=== PATIENT | female | born 1970 | race Caucasian/White ===

== ENCOUNTER → 2017-11-30 10:34 | Outpatient (CLI) | payer OTHER, SELFPAY ==
--- NOTE | 2017-11-30 | DI.US.S_ITS ---
PROCEDURE: US THYROID INDICATIONS: THYROID NODULE TECHNIQUE: Real-time scanning was performed of the thyroid gland, with image documentation. COMPARISON: [facility], US, THYROID, 10/04/2015, 16:16. FINDINGS: Right: Thyroidectomy. Left: Thyroid lobe measures 5.2 x 2.0 x 2.0 cm, and is homogenous in echotexture. Nodule number: 1 Location: Left mid Size: Similar in size measuring 1.7 x 0.6 x 1.2 cm Composition: Solid Echogenicity: Hypoechoic Shape: wider than tall. Margins: Smooth Echogenic foci: None Total points: 4 ACR TI-RADS category: Moderately suspicious Nodule number: 2 Location: Left mid inferior Size: Similar in size measuring 0.6 x 0.4 x 0.5 cm Composition: Solid Echogenicity: Hypoechoic Shape: wider than tall. Margins: Smooth Echogenic foci: None Total points: 4 ACR TI-RADS category: Moderately suspicious Nodule number: 3 Location: Left mid to superior Size: 0.7 x 0.3 x 0.6 cm. Composition: Predominantly solid Echogenicity: Hypoechoic Shape: wider than tall. Margins: Move Echogenic foci: None Total points: 4 ACR TI-RADS category: Moderately suspicious IMPRESSION: Left thyroid nodules as above. Recommend continued sonographic surveillance as below. ACR TI-RADS definitions and recommendations: TI-RADS 1 (benign): 0 points. FNA not needed. TI-RADS 2 (not suspicious): 2 points. FNA not needed. TI-RADS 3 (mildly suspicious): 3 points. * FNA if 2.5 cm or larger, follow up if 1.5 cm or larger (at 1, 3, and 5 years). TI-RADS 4 (moderately suspicious): 4-6 points. * FNA if 1.5 cm or larger, follow up if 1 cm or larger (at 1, 2, 3, and 5 years). TI-RADS 5 (highly suspicious): 7 points or more. * FNA if 1 cm or larger, follow up if 0.5 cm or larger (every year for 5 years). Dictated by: Jermaine FOOTE Interpreted: Aayush Coronel MD on 11/30/2017 at 13:12 Approved by: Rob Coronel M.D. on 11/30/2017 at 16:37
== END ==
PROVIDERS: PCP Family Medicine; Visit Provider Family Medicine
DX: E04.2 Nontoxic multinodular goiter (principal)
CPT/HCPCS: 76536

== ENCOUNTER → 2017-12-20 11:20 | Outpatient (CLI) | payer OTHER, SELFPAY ==
--- NOTE | 2017-12-20 | DI.MG.S_ITS ---
BILATERAL DIGITAL SCREENING MAMMOGRAM 3D/2D WITH CAD: 12/20/2017 CLINICAL: Routine screening. Family history of breast cancer. Comparison is made to exams dated: 11/03/2016 mammogram, 09/15/2015 mammogram, and 05/15/2014 mammogram - [facility]. The tissue of both breasts is extremely dense, which lowers the sensitivity of mammography. Current study was also evaluated with a Computer Aided Detection (CAD) system. No significant masses, calcifications, or other findings are seen in either breast. There has been no significant interval change. IMPRESSION: NEGATIVE There is no mammographic evidence of malignancy. A 1 year screening mammogram is recommended. This exam was interpreted at Station ID: [id number]. NOTE: For mammograms, a report in lay terms will be sent to the patient. Approximately 15% of breast malignancies will not be visualized mammographically. In the management of a palpable breast mass, a negative mammogram must not discourage biopsy of a clinically suspicious lesion. Electronically Signed By: Rafa villalobos/doyle:12/20/2017 16:45:38 copy to: Marcos Hernandez letter sent: Normal Exam ACR BI-RADS Category 1: Negative 3341F
== END ==
PROVIDERS: PCP Family Medicine; Visit Provider Family Medicine
DX: Z12.31 Encounter for screening mammogram for malignant neoplasm of breast (principal); Z80.3 Family history of malignant neoplasm of breast
CPT/HCPCS: 77063; 77067

== ENCOUNTER → 2018-01-01 09:33 | Outpatient (CLI) | payer OTHER, SELFPAY ==
--- NOTE | 2018-01-01 | DI.US.S_ITS ---
PROCEDURE: US FINE NEEDLE ASPIRATION INDICATIONS: THYROID NODULE TECHNIQUE: The indications, alternatives, benefits, risks, and complications of the procedure were explained to the patient. Written informed consent was obtained and placed in the chart. The thyroid region was examined sonographically and a site was chosen for ultrasound guided percutaneous sampling. The skin was prepared and draped in the usual fashion, and anesthetized with 1% lidocaine infiltrated from the skin down to the thyroid gland. Multiple passes were then performed, with contents emptied into an appropriate pathology specimen container. A bandage was applied to the area of access at completion of the study. COMPARISON: [facility], US, US THYROID, 11/30/2017, 10:47. FINDINGS: Location(s) of lesion(s) sampled: Right lobe medial thyroid nodule [place]: 25 gauge hypodermic needles x 5 22 gauge hypodermic needles x 1. Number of passes: 6 Medications: 1% lidocaine for local anaesthesia. Complications: None. IMPRESSION: Successful ultrasound-guided thyroid nodule fine needle aspiration, with cytology results pending. Please see chart below for management recommendations based on cytology results. [place] [facility] ReportingRecommendationsNon-diagnostic* Repeat US-guided FNA, with on-site cytology evaluation if possible. * Repeated non-diagnostic nodules without high suspicion US features: close observation vs surgical consult. * Consider surgery if nodule has high suspicion US features, grows >20% in 2 dimensions on followup, or patient has clinical risk factors for malignancy. Benign* If nodule has high suspicion US features: repeat US and FNA within 12 months. * If nodule has low to intermediate suspicion US features: repeat US at 12-24 months. If nodule grows (20% increase in at least 2 dimensions, with minimal increase of 2 mm or >50% change in volume), or development of new suspicious US features, then repeat FNA or continue followup. * If nodule has very low suspicion US features: followup US at >24 months. Atypia of undetermined significance, follicular lesion of undetermined significanceRepeat FNA, molecular testing, followup US, or surgical consult.Follicular neoplasm, suspicious for follicular neoplasmSurgical consult; also consider molecular testing. Suspicious for malignancySurgical consult.MalignantSurgical consult. Dictated by: Shamika Pritchett M.D. on 01/01/2018 at 11:27 Approved by: Shamika Pritchett M.D. on 01/01/2018 at 11:29
--- NOTE | 2018-01-01 | PATH_ITS ---
Note [facility] Accession Number: [id number] TESTS RESULT FLAG UNITS REF RANGE LAB Clinician Provided Cytology Information No. of containers..01 ThinPrep Vial No. of containers..10 Previously Prepared Cytology Slide 01 L THYROID NODULE DIAGNOSIS: 02 LEFT THYROID NODULE NEGATIVE FOR MALIGNANT CELLS. [place] CATEGORY II. SPECIMEN CONSISTS OF BENIGN FOLLICULAR CELLS, HEMOSIDERIN-LADEN MACROPHAGES, COLLOID, AND BLOOD. THIS PATTERN IS CONSISTENT WITH A BENIGN FOLLICULAR NODULE. Pathologist ICD10: 02 E04.1 01 47 years old female comes in today for thyroid nodule 02 Melissa Hampton MD, Pathologist NPI- [id number] 01 Baljit Connelly, Custom Ski Maker ([facility]) 01 30 CC, COLORLESS, CLEAR Also, received 5 alcohol fixed and 5 quick stained slides. /HKH FLAG LEGEND: L-Low Normal,H-High Normal,LL-Alert Low,HH-Alert High <-Panic Low,>-Panic High,A-Abnormal,AA-Critical Abnormal Performed at: 01 =Z [facility] [address], [place] [address] Horacio Wells MD, 02 [facility] [place] [address] [place] [id number] Sacha Mario MD, Performed at: 01 [facility] [address], [place], [place] [id number] MD Horacio Wells MD Phone: [phone]
== END ==
PROVIDERS: PCP Family Medicine; Visit Provider Family Medicine
DX: E04.1 Nontoxic single thyroid nodule (principal)
CPT/HCPCS: 10022; 76942

== ENCOUNTER → 2018-04-02 16:33 | Outpatient (CLI) | payer OTHER, SELFPAY ==
--- NOTE | 2018-04-02 16:34 | DI.MRI.S_ITS ---
PROCEDURE: MR CERVICAL SPINE WO CON INDICATIONS: NUMBNESS AND TINGLING OF THE RIGHT HAND. NECK PAIN TECHNIQUE: Noncontrast sagittal T1 spin echo and T2 fast spin echo, sagittal STIR, foraminal oblique sagittal T2 fast spin echo, and axial gradient echo or T2 fast spin echo through the cervical spine. COMPARISON: [facility], MR, C-SPINE WITHOUT CONTRAST, 10/03/2016, 7:10. FINDINGS: Image quality: Excellent. Alignment and Curvature: There is normal bony alignment. Bone Marrow: Marrow demonstrates normal overall signal. Spinal Cord: Visualized spinal cord has normal size and signal. No cerebellar tonsillar herniation. Paraspinous Soft Tissues: No paravertebral masses. Prevertebral soft tissues are normal in thickness. C2-C3: Mild disc desiccation and diffuse disc bulge. Mild facet hypertrophy bilaterally. Mild canal stenosis. Mild left foraminal stenosis. No right foraminal stenosis. No change. C3-C4: Mild disco loss and desiccation. Severe left and mild right facet hypertrophy. Moderate canal stenosis. Minimal left hemicord flattening. Severe left foraminal stenosis. Mild right foraminal stenosis. No change. C4-C5: Moderate disc desiccation. Mild disc height loss. Moderate diffuse disc bulge. Small central protrusion. Left greater than right facet and uncovertebral hypertrophy. Moderate canal stenosis. Increased, moderate left foraminal stenosis. No change in mild right foraminal stenosis. C5-C6: Mild disc height loss and desiccation. Mild diffuse disc bulge. Mild facet and uncovertebral hypertrophy. Mild canal stenosis. Mild bilateral foraminal stenosis. No change. C6-C7: Mild disc height loss and desiccation. Mild diffuse disc bulge with superimposed small central protrusion. Mild facet and uncovertebral hypertrophy bilaterally. Mild canal stenosis. Mild bilateral foraminal stenosis. No change. C7-T1: Mild disc desiccation and diffuse disc bulge. Mild facet and uncovertebral hypertrophy. Mild canal stenosis. Mild bilateral foraminal stenosis. No change. IMPRESSION: 1. Multilevel degenerative disc and facet disease, as well as uncovertebral hypertrophy. 2. Multilevel canal stenoses, worst at C3-C4, where there is moderate canal stenosis with minimal left cord flattening, as before. 3. No change in severe left-sided C3-C4 foraminal stenosis. 4. Increased, moderate left-sided C4-C5 foraminal stenosis. Dictated by: Emma Almonte M.D. on 04/03/2018 at 9:25 Approved by: Emma Almonte M.D. on 04/03/2018 at 9:30
== END ==
PROVIDERS: PCP Family Medicine; Visit Provider Family Medicine
DX: M50.31 Other cervical disc degeneration, high cervical region (principal); M48.02 Spinal stenosis, cervical region; R20.0 Anesthesia of skin
CPT/HCPCS: 72141

== ENCOUNTER → 2018-07-10 10:13 | Outpatient (CLI) | payer OTHER, SELFPAY ==
--- NOTE | 2018-07-10 | DI.RAD.S_ITS ---
PROCEDURE: XR CHEST 2V INDICATIONS: RIGHT UPPER CHEST PAIN TECHNIQUE: 2 views of the chest were acquired. COMPARISON: [facility], CHEST 2 VIEW, 02/18/2016, 7:56. [facility], CHEST 2 VIEW, 07/14/2009, 14:32. FINDINGS: Surgical changes and devices: None. Lungs and pleura: No pleural effusions or pneumothorax. Lungs are clear. Mediastinum: Mediastinal contours are normal. Heart size is normal. Bones and chest wall: No suspicious bony abnormalities. Soft tissues appear unremarkable. IMPRESSION: Normal for age, source of current right upper chest pain symptoms is not seen. Dictated by: Jason Guerrero M.D. on 07/10/2018 at 10:39 Approved by: Jason Guerrero M.D. on 07/10/2018 at 10:40
== END ==
PROVIDERS: PCP Family Medicine; Visit Provider Family Medicine
DX: R07.89 Other chest pain (principal)
CPT/HCPCS: 71046

== ENCOUNTER → 2018-09-16 11:13 | Outpatient (CLI) | payer OTHER, SELFPAY ==
--- NOTE | 2018-09-16 | DI.RAD.S_ITS ---
PROCEDURE: XR CHEST 2V INDICATIONS: Thoracic outlet syndrome TECHNIQUE: 2 views of the chest were acquired. COMPARISON: [facility], CR, XR CHEST 2V, 07/10/2018, 10:19. FINDINGS: Surgical changes and devices: None. Lungs and pleura: Lungs are clear. No pleural effusions or pneumothorax. Mediastinum: Mediastinal contours are normal. Heart size is normal. Bones and chest wall: No suspicious bony abnormalities. Soft tissues appear unremarkable. IMPRESSION: No acute disease. Dictated by: Phillip Luz M.D. on 09/16/2018 at 12:31 Approved by: Phillip Luz M.D. on 09/16/2018 at 12:32
--- NOTE | 2018-09-16 | DI.RAD.S_ITS ---
PROCEDURE: XR CERVICAL SPINE 2V OR 3V INDICATIONS: THORACIC OUTLET SYNDROME TECHNIQUE: 3 view(s) of the cervical spine were acquired. COMPARISON: [facility], CR, XR CHEST 2V, 09/16/2018, 11:45. FINDINGS: Bones: No fractures or dislocations to the C7 level. The lateral masses of C1 appear intact on the odontoid view. No suspicious bony lesions. Diffuse facet arthropathy. Cervical disc space heights appear grossly preserved. No definite cervical rib is seen. Soft tissues: No prevertebral soft tissue swelling. IMPRESSION: Multilevel bilateral facet arthropathy Dictated by: Phillip Luz M.D. on 09/16/2018 at 12:56 Approved by: Phillip Luz M.D. on 09/16/2018 at 13:02
== END ==
PROVIDERS: PCP Family Medicine; Visit Provider Orthopaedic Surgery
DX: G54.0 Brachial plexus disorders (principal)
CPT/HCPCS: 71046; 72040

== ENCOUNTER → 2019-01-08 16:17 | Outpatient (CLI) | payer BC, OTHER, SELFPAY ==
--- NOTE | 2019-01-08 16:21 | DI.RAD.S_ITS ---
PROCEDURE: XR CHEST 2V INDICATIONS: COUGH TECHNIQUE: 2 views of the chest were acquired. COMPARISON: [facility], CT, ABDOMEN/PELVIS WITH CONTRAST, 03/02/2016, 6:47. [facility], CR, XR CHEST 2V, 09/16/2018, 11:45. FINDINGS: Surgical changes and devices: Cholecystectomy clips. Lungs and pleura: Lungs are clear. No consolidation. No pleural effusions or pneumothorax. Mediastinum: Mediastinal contours are normal and unchanged. Heart size is normal. Bones and chest wall: No suspicious bony abnormalities. Soft tissues appear unremarkable. IMPRESSION: No acute cardiopulmonary abnormality. Dictated by: Myles Barbosa M.D. on 01/08/2019 at 16:53 Approved by: Myles Barbosa M.D. on 01/08/2019 at 16:55
== END ==
PROVIDERS: PCP Family Medicine; Visit Provider Family Medicine
DX: R05 Cough (principal)
CPT/HCPCS: 71046

== ENCOUNTER → 2019-02-14 07:46 | Outpatient (CLI) | payer BC, OTHER, SELFPAY ==
--- NOTE | 2019-02-14 | DI.US.S_ITS ---
PROCEDURE: US THYROID INDICATIONS: Nontoxic single thyroid nodule TECHNIQUE: Real-time scanning was performed of the thyroid gland, with image documentation. COMPARISON: [facility], US, US THYROID, 11/30/2017, 10:47. [facility], US, THYROID, 10/04/2015, 16:16. FINDINGS: Right: Surgically resected. Left: Thyroid lobe measures 5.2 x 2.2 x 1.9 cm, and is homogenous in echotexture. Isthmus: 4.0 mm thick. Nodule number: 1 Location: Left mid Size: Not significantly changed at 1.6 x 0.6 x 1.2 cm. Composition: Predominantly solid Echogenicity: Hypoechoic Shape: wider than tall. Margins: Smooth Echogenic foci: Macrocalcification Total points: 5 ACR TI-RADS category: Moderately suspicious Nodule number: 2 Location: Left inferior Size: Unchanged at 0.6 x 0.5 x 0.4 cm. Composition: Solid Echogenicity: Hypoechoic Shape: wider than tall. Margins: Smooth Echogenic foci: None Total points: 4 ACR TI-RADS category: Moderately suspicious Nodule number: 3 Location: Left superior Size: Unchanged at 0.7 x 0.6 x 0.4 cm. Composition: Solid Echogenicity: Hypoechoic Shape: wider than tall. Margins: Smooth Echogenic foci: None Total points: 4 ACR TI-RADS category: Moderately suspicious IMPRESSION: Stable appearance of left thyroid nodules. ACR TI-RADS definitions and recommendations: TI-RADS 1 (benign): 0 points. FNA not needed. TI-RADS 2 (not suspicious): 2 points. FNA not needed. TI-RADS 3 (mildly suspicious): 3 points. * FNA if 2.5 cm or larger, follow up if 1.5 cm or larger (at 1, 3, and 5 years). TI-RADS 4 (moderately suspicious): 4-6 points. * FNA if 1.5 cm or larger, follow up if 1 cm or larger (at 1, 2, 3, and 5 years). TI-RADS 5 (highly suspicious): 7 points or more. * FNA if 1 cm or larger, follow up if 0.5 cm or larger (every year for 5 years). Dictated by: Jermaine FOOTE Interpreted: Monica Yoder MD on 02/14/2019 at 9:35 Approved by: Monica Yoder M.D. on 02/14/2019 at 15:12
== END ==
PROVIDERS: PCP Family Medicine; Visit Provider Family Medicine
DX: E04.2 Nontoxic multinodular goiter (principal)
CPT/HCPCS: 76536

== ENCOUNTER → 2019-05-14 07:15 | Outpatient (CLI) | payer BC, OTHER, SELFPAY ==
--- NOTE | 2019-05-14 | DI.MG.S_ITS ---
BILATERAL DIGITAL SCREENING MAMMOGRAM 3D/2D WITH CAD: 05/14/2019 CLINICAL: Routine screening. Family history of breast cancer. Comparison is made to exams dated: 12/20/2017 mammogram, 11/03/2016 mammogram, and 09/15/2015 mammogram - [facility]. The tissue of both breasts is extremely dense, which lowers the sensitivity of mammography. Current study was also evaluated with a Computer Aided Detection (CAD) system. No significant masses, calcifications, or other findings are seen in either breast. There has been no significant interval change. IMPRESSION: NEGATIVE There is no mammographic evidence of malignancy. A 1 year screening mammogram is recommended. This exam was interpreted at Station ID: [id number]. NOTE: For mammograms, a report in lay terms will be sent to the patient. Approximately 15% of breast malignancies will not be visualized mammographically. In the management of a palpable breast mass, a negative mammogram must not discourage biopsy of a clinically suspicious lesion. Electronically Signed By: Enrique alonzo/doyle:05/14/2019 08:01:45 copy to: Marcos Hernandez letter sent: Normal Exam ACR BI-RADS Category 1: Negative 3341F
== END ==
PROVIDERS: PCP Family Medicine; Visit Provider Family Medicine
DX: Z12.31 Encounter for screening mammogram for malignant neoplasm of breast (principal); Z80.3 Family history of malignant neoplasm of breast
CPT/HCPCS: 77063; 77067

== ENCOUNTER → 2020-05-22 09:54 | Outpatient (CLI) | payer OTHER, SELFPAY ==
--- NOTE | 2020-05-22 | DI.MG.S_ITS ---
BILATERAL DIGITAL SCREENING MAMMOGRAM 3D/2D WITH CAD: 05/22/2020 CLINICAL: Routine screening. Family history of breast cancer. Comparison is made to exams dated: 05/14/2019 mammogram, 12/20/2017 mammogram, and 11/03/2016 mammogram - [facility]. The tissue of both breasts is extremely dense, which lowers the sensitivity of mammography. Current study was also evaluated with a Computer Aided Detection (CAD) system. No significant masses, calcifications, or other findings are seen in either breast. There has been no significant interval change. IMPRESSION: NEGATIVE There is no mammographic evidence of malignancy. A 1 year screening mammogram is recommended. This exam was interpreted at Station ID: [id number]. NOTE: For mammograms, a report in lay terms will be sent to the patient. Approximately 15% of breast malignancies will not be visualized mammographically. In the management of a palpable breast mass, a negative mammogram must not discourage biopsy of a clinically suspicious lesion. Electronically Signed By: Michoacano Manning acr/doyle:05/23/2020 18:18:24 copy to: Elisa Rodriguez letter sent: Normal Exam ACR BI-RADS Category 1: Negative 3341F
== END ==
PROVIDERS: PCP Family Medicine; Referring Provider Family Medicine; Visit Provider Family Medicine
DX: Z12.31 Encounter for screening mammogram for malignant neoplasm of breast (principal); Z80.3 Family history of malignant neoplasm of breast
CPT/HCPCS: 77063; 77067

== ENCOUNTER → 2020-06-25 14:05 | Outpatient (CLI) | payer OTHER, SELFPAY ==
[2020-06-25 15:14] LABS: Add Manual Diff / Slide Review NO; Basophils Absolute Auto 0 /uL (0-100); Basophils Percent Auto 0.4 % (0-2); Eosinophils Absolute Auto 200 /uL (0-450); Eosinophils Percent Auto 2.1 % (2-4); Hematocrit 37.9 % (36-46); Hemoglobin 12.7 g/dL (12.0-16.0); Lymphocytes Absolute Auto 3300 /uL (1100-4500); Lymphocytes Percent Auto 41.1 % (25-40); Mean Corpuscular HGB Conc 33.3 % (30-36); Mean Corpuscular Hemoglobin 28.6 PG (26-34); Mean Corpuscular Volume 85.9 fL (80-100); Monocytes Absolute Auto 600 /uL (0-900); Neutrophils Absolute Auto 4000 /uL (1500-7000); Neutrophils Percent Auto 49.4 % (50-75); Platelet Count 257 X10^3/uL (150-400); Red Blood Cell Count 4.42 X10^6/uL (4.0-5.2); Red Cell Distribution Width 14.4 % (11.6-14.8); White Blood Cell Count 8.1 X10^3/uL (4.5-11.0)
[2020-06-25 15:53] LABS: HEMOLYSIS < 15 (0-50); Iron 70 ug/dL (37-170)
[2020-06-25 16:04] LABS: Percent Iron Saturation 21 % (15-50); Total Iron Binding Capacity 336 ug/dL (265-497); Transferrin 268 mg/dL (206-381)
[2020-06-25 16:11] LABS: Free T4, Direct Thyroxine 1.06 ng/dL (0.78-2.19)
[2020-06-25 16:25] LABS: Thyroid Stimulating Hormone 1.25 uIU/mL (0.47-4.68)
[2020-06-29 06:26] LABS: Percent Free Testosterone 2.37 % (0.50-2.80); Testosterone Free 0.46 ng/dL (0.10-0.85); Testosterone Total 19.3 ng/dL (.)
== END ==
PROVIDERS: PCP Family Medicine; Referring Provider Obstetrics & Gynecology; Visit Provider Obstetrics & Gynecology
DX: L65.9 Nonscarring hair loss, unspecified (principal)
CPT/HCPCS: 36415; 83540; 83550; 84402; 84403; 84439; 84443; 85025

== ENCOUNTER → 2020-06-30 14:05 | Outpatient (CLI) | payer OTHER, SELFPAY ==
[2020-06-30 16:32] LABS: Estradiol, Total 168.2 pg/mL
== END ==
PROVIDERS: PCP Family Medicine; Referring Provider Obstetrics & Gynecology; Visit Provider Obstetrics & Gynecology
DX: L65.9 Nonscarring hair loss, unspecified (principal)
CPT/HCPCS: 36415; 82670

== ENCOUNTER → 2020-08-25 07:38 | Outpatient (CLI) | payer OTHER, SELFPAY ==
[2020-08-25] MEDS: COVID-19 VACC, Ad26(JANSSEN)/PF 0.5 ML IM (07:54)
== END ==
PROVIDERS: PCP Family Medicine; Visit Provider Internal Medicine
DX: Z23 Encounter for immunization (principal)
CPT/HCPCS: 0031A; 91303

== ENCOUNTER → 2021-02-07 09:55 | Outpatient (CLI) | payer OTHER, SELFPAY ==
--- NOTE | 2021-03-04 08:20 | P.HOLT.S_ITS ---
Crop Nutrition Scientist Report Referral & Results Date Patient Seen: 02/07/21 Requesting provider: Marcos Hernandez Indication: Palpitations Duration of monitoring (days): 14 Diary information: There were 8 patient triggered events and 4 patient diary entries All of these patient events were associated with sinus rhythm only Data: Minimum heart rate identified was 40 beats per minute at 05:16 on 02/10/2021 Maximum sinus heart rate was 132 beats per minute at 15:17 on 02/15/2021 Maximum overall heart rate was 162 beats per minute at 08:02 on 02/17/2021 during a run of SVT/atrial tachycardia Less than 1% of identified beats were ventricular or supraventricular ectopic in origin, which would classify them as rare. There were 8 runs of SVT/atrial tachycardia the fastest being 15 beat run noted above which was also the longest run. 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
== END ==
PROVIDERS: PCP Family Medicine; Referring Provider Family Medicine; Visit Provider Family Medicine
DX: R00.2 Palpitations (principal)
CPT/HCPCS: 93246; 93248

== ENCOUNTER → 2021-07-04 07:29 | Outpatient (CLI) | payer OTHER, SELFPAY ==
--- NOTE | 2021-07-04 | DI.MG.S_ITS ---
BILATERAL DIGITAL SCREENING MAMMOGRAM 3D/2D WITH CAD: 07/04/2021 CLINICAL: Routine screening. Family history of breast cancer. Comparison is made to exams dated: 05/22/2020 mammogram, 05/14/2019 mammogram, and 12/20/2017 mammogram - [facility]. The tissue of both breasts is extremely dense, which lowers the sensitivity of mammography. Current study was also evaluated with a Computer Aided Detection (CAD) system. There are benign calcifications in both breasts. No significant masses, calcifications, or other findings are seen in either breast. There has been no significant interval change. IMPRESSION: BENIGN There is no mammographic evidence of malignancy. A 1 year screening mammogram is recommended. This exam was interpreted at Station ID: [id number]. NOTE: For mammograms, a report in lay terms will be sent to the patient. Approximately 15% of breast malignancies will not be visualized mammographically. In the management of a palpable breast mass, a negative mammogram must not discourage biopsy of a clinically suspicious lesion. Electronically Signed By: Horacio lemus/doyle:07/05/2021 12:10:26 copy to: Elisa Rodriguez letter sent: Normal Exam ACR BI-RADS Category 2: Benign Finding(s) 3342F
== END ==
PROVIDERS: PCP Family Medicine; Referring Provider Family Medicine; Visit Provider Family Medicine
DX: Z12.31 Encounter for screening mammogram for malignant neoplasm of breast (principal)
CPT/HCPCS: 77063; 77067

== ENCOUNTER → 2022-04-20 16:36 | Outpatient (CLI) | payer OTHER, SELFPAY ==
--- NOTE | 2022-04-20 16:42 | DI.RAD.S_ITS ---
PROCEDURE: XR KNEE RT 3V INDICATIONS: RT. KNEE PAIN TECHNIQUE: 3 views of the knee were acquired. COMPARISON: [facility], CR, XR KNEE LT 3V, 04/20/2022, 16:44. FINDINGS: Bones: No fractures or dislocations. No suspicious bony lesions. Mild tricompartmental knee joint space narrowing with periarticular osteophyte formation. Soft tissues: Small joint effusion. No suspicious soft tissue calcifications. IMPRESSION: Mild tricompartmental knee joint degeneration, most notably involving medial femorotibial joint. Dictated by: Jermaine Jimenze [facility] Interpreted: Monica Yoder MD on 04/20/2022 at 16:57 Transcribed by: RITA on 04/20/2022 at 16:57 Approved by: Monica Yoder M.D. on 04/20/2022 at 21:17
--- NOTE | 2022-04-20 16:42 | DI.RAD.S_ITS ---
PROCEDURE: XR KNEE LT 3V INDICATIONS: LT. KNEE PAIN TECHNIQUE: 3 views of the knee were acquired. COMPARISON: [facility], , KNEE 3V LEFT, 03/02/2015, 16:25. FINDINGS: Bones: No fractures or dislocations. No suspicious bony lesions. Mild tricompartmental knee joint space narrowing with mild periarticular osteophyte formation. Soft tissues: Small joint effusion. No suspicious soft tissue calcifications. IMPRESSION: Mild tricompartmental knee joint degeneration, most notably medial femorotibial joint. Dictated by: Jermaine FOOTE Interpreted: Monica Yoder MD on 04/20/2022 at 16:56 Transcribed by: RITA on 04/20/2022 at 16:56 Approved by: Monica Yoder M.D. on 04/20/2022 at 21:17
== END ==
PROVIDERS: PCP Family Medicine; Referring Provider Family Medicine; Visit Provider Family Medicine
DX: M25.561 Pain in right knee (principal); M25.562 Pain in left knee; M17.0 Bilateral primary osteoarthritis of knee
CPT/HCPCS: 73562

== ENCOUNTER → 2022-08-15 07:33 | Outpatient (CLI) | payer OTHER, SELFPAY ==
--- NOTE | 2022-08-15 | DI.MG.S_ITS ---
BILATERAL DIGITAL SCREENING MAMMOGRAM 3D/2D WITH CAD: 08/15/2022 CLINICAL: Routine screening. Family history of breast cancer. Comparison is made to exams dated: 07/04/2021 mammogram, 05/22/2020 mammogram, and 05/14/2019 mammogram - [facility]. Both breasts are extremely dense, which lowers the sensitivity of mammography (category d />75% glandular tissue). Current study was also evaluated with a Computer Aided Detection (CAD) system. There are benign calcifications in both breasts. No significant masses, calcifications, or other findings are seen in either breast. There has been no significant interval change. IMPRESSION: BENIGN There is no mammographic evidence of malignancy. A 1 year screening mammogram is recommended. Based on Tyrer-Cuzick model (a risk assessment model), the patient's lifetime risk is 21.2% and her 10 year risk is 6.0%. If a patient has an elevated risk, a more comprehensive evaluation should be considered and/or a referral to a genetic counselor. The [employer], [employer], and NCCN Guidelines advise the consideration of Breast MRI as an adjunct to screening mammography in patients whose Lifetime risk to develop breast cancer is 20% or higher. This exam was interpreted at Station ID: [id number]. NOTE: For mammograms, a report in lay terms will be sent to the patient. Approximately 15% of breast malignancies will not be visualized mammographically. In the management of a palpable breast mass, a negative mammogram must not discourage biopsy of a clinically suspicious lesion. Electronically Signed By: Bowen Lopez M.D., jr/doyle:08/15/2022 12:23:22 copy to: Elisa Rodriguez letter sent: Normal Exam ACR BI-RADS Category 2: Benign Finding(s) 3342F
== END ==
PROVIDERS: PCP Family Medicine; Referring Provider Family Medicine; Visit Provider Family Medicine
DX: Z12.31 Encounter for screening mammogram for malignant neoplasm of breast (principal); Z80.3 Family history of malignant neoplasm of breast
CPT/HCPCS: 77063; 77067

== ENCOUNTER → 2022-09-25 15:47 | Outpatient (CLI) | payer OTHER, SELFPAY ==
--- NOTE | 2022-09-25 | DI.MRI.S_ITS ---
PROCEDURE: MR KNEE RT WO CON INDICATIONS: Strain of unspecified quadriceps muscle TECHNIQUE: Noncontrast sagittal PD fast spin echo and T2 fast spin echo with fat saturation, sagittal 3-D FLASH with fat saturation; coronal T1 spin echo and PD fast spin echo with fat saturation, and axial PD fast spin echo with fat saturation through the knee. COMPARISON: [facility], CR, XR KNEE RT 3V, 04/20/2022, 16:44. [facility], MR, KNEE WITHOUT CONTRAST, 03/18/2015, 7:13. FINDINGS: Image quality: Good Menisci: Medial: Small peripheral horizontal tear of the medial meniscus involving the body and posterior horn, probably chronic/degenerative Lateral: Complex tear involving the anterior horn and anterior body, with a vertical component. Cruciate ligaments: Intact Medial structures: MCL: Intact Pes anserine tendons: Intact Semimembranosus: Intact Lateral structures: LCL: Intact Biceps femoris: Intact IT band: Intact Popliteus tendon: Intact Anterior structures: Extensor mechanism: Intact. Quadriceps insertion is intact. mild prepatellar soft tissue edema Fat pads: Mild edema in Hoffa's fat pad Medial retinaculum: Intact. Trochlea: Slightly shallow. The patella shows very slight lateral tilt. Overall normal TT TG distance. Bone and joint: Bones: Insertional ganglions changes at the tibial spines. No acute fracture. Cartilage: Partial thickness fissuring of the patellar cartilage. No full-thickness defect of the lateral or medial cartilage. Joint space: Moderate joint effusion and evidence of synovitis. Gray's cyst: Small Gray's cyst. Soft tissues: No significant vascular or other soft tissue pathology. IMPRESSION: Cruciate ligaments are intact. Focal complex tear is seen in the anterior portion of the lateral meniscus. Horizontal, likely degenerative tear also seen in the medial meniscus. Hoffa's fat pad mild edema. Moderate joint effusion. Partial thickness fissuring of the patellar cartilage. Overall mild degenerative changes. Patella is tilted slightly laterally; Overall normal TT TG distance. Dictated by: Jc Waters M.D. on 09/25/2022 at 16:53 Approved by: Jc Waters M.D. on 09/25/2022 at 17:01
== END ==
PROVIDERS: PCP Family Medicine; Referring Provider Orthopaedic Surgery; Visit Provider Orthopaedic Surgery
DX: S83.271A Complex tear of lateral meniscus, current injury, right knee, initial encounter (principal); S83.241A Other tear of medial meniscus, current injury, right knee, initial encounter; S76.119A Strain of unspecified quadriceps muscle, fascia and tendon, initial encounter; M25.461 Effusion, right knee
CPT/HCPCS: 73721

== ENCOUNTER → 2023-08-17 07:43 | Outpatient (CLI) | payer OTHER, SELFPAY ==
--- NOTE | 2023-08-17 07:47 | DI.MG.S_ITS ---
BILATERAL DIGITAL SCREENING MAMMOGRAM 3D/2D WITH CAD: 08/17/2023 CLINICAL: Routine screening. Family history of breast cancer. Comparison is made to exams dated: 08/15/2022 mammogram, 07/04/2021 mammogram, and 05/22/2020 mammogram - [facility]. Both breasts are heterogeneously dense, which may obscure small masses (category c / 51-75% glandular tissue). Current study was also evaluated with a Computer Aided Detection (CAD) system. There are benign calcifications in both breasts. No significant masses, calcifications, or other findings are seen in either breast. There has been no significant interval change. IMPRESSION: BENIGN There is no mammographic evidence of malignancy. A 1 year screening mammogram is recommended. Based on the Tyrer Cuzick model (a risk assessment model) the patient's lifetime risk is 14.3% and her 10 year risk is 4.2%. According to the ACR, ACS, and NCCN guidelines, an annual breast MRI exam along with mammogram is recommended if the patient's lifetime risk is 20% or greater. This exam was interpreted at Station ID: [id number]. NOTE: For mammograms, a report in lay terms will be sent to the patient. Approximately 15% of breast malignancies will not be visualized mammographically. In the management of a palpable breast mass, a negative mammogram must not discourage biopsy of a clinically suspicious lesion. Electronically Signed By: Zaida soler/doyle:08/17/2023 08:57:12 copy to: Elisa Rodriguez letter sent: Normal Exam ACR BI-RADS Category 2: Benign Finding(s) [id number]
== END ==
PROVIDERS: PCP Family Medicine; Referring Provider Family Medicine; Visit Provider Family Medicine
DX: Z12.31 Encounter for screening mammogram for malignant neoplasm of breast (principal); Z80.3 Family history of malignant neoplasm of breast; R92.333 Mammographic heterogeneous density, bilateral breasts
CPT/HCPCS: 77063; 77067

== ENCOUNTER 2023-11-23 07:42 | Emergency (ER) | payer OTHER, SELFPAY ==
[2023-11-23 07:54] VITALS: BP 129/57; PULSE 69; RESP 18; TEMP 37.1; O2SAT 97; BMI 32.8
--- NOTE | 2023-11-23 08:11 | DI.RAD.S_ITS ---
PROCEDURE: XR KNEE RT 1TO2V INDICATIONS: sudden pop and pain climbing stairs and lowered to ground TECHNIQUE: 2 views of the knee were acquired. COMPARISON: [facility], CR, XR KNEE RT 3V, 04/20/2022, 16:44. [facility], CR, XR KNEE LT 3V, 04/20/2022, 16:44. FINDINGS: Bones: No fractures or dislocations. No suspicious bony lesions. Mild degenerative change. Soft tissues: No joint effusion. No suspicious soft tissue calcifications. IMPRESSION: No acute bony abnormality or significant effusion. Mild degenerative change. Dictated by: Yo Ny M.D. on 11/23/2023 at 8:30 Approved by: Yo Ny M.D. on 11/23/2023 at 8:31
[2023-11-23] MEDS: KETOROLAC 30 MG/ML VIAL IM (09:47)
--- NOTE | 2023-11-23 11:07 | ED.EXTPRO ---
HPI - Extremity Problem General Chief complaint: Extremity Problem,Nontraumatic Stated complaint: R Knee Pain Time Seen by Provider: 11/23/23 10:43 Source: patient Mode of arrival: Ambulatory History of Present Illness HPI Narrative: 53-year-old with ongoing right-sided knee pain, suspected meniscus tear clinically, patellofemoral syndrome, followed by Dr. Alvarado orthopedic surgery at [facility], awaiting outpatient MRI of the right knee, today was walking upstairs and felt a popping sensation, and had posterior pain right knee. Denies pain to the right hip, thigh,mid-distal foreleg, ankle, foot toes. Denies rain to left legt, both upper extremities. Related Data Home Medications Medication Instructions Recorded Confirmed cholecalciferol (vitamin D3) 25 5,000 u PO QDAY ##0 11/10/16 10/27/23 mcg (1,000 unit) tablet (Vitamin D3) atorvastatin 10 mg tablet 10 mg PO DAILY 04/11/23 10/27/23 Previous Rx's Medication Instructions Recorded estradiol 0.05 mg/24 hr semiweekly 1 patch topical 2XW #24 patches 08/31/23 transdermal patch (Jenny) amoxicillin 500 mg capsule 500 mg PO BID #20 caps 10/27/23 naproxen 500 mg tablet 500 mg PO BID 7 days #14 tabs 11/23/23 Allergies Allergy/AdvReac Type Severity Reaction Status Date / Time codeine [CODEINE] AdvReac Severe VOMITING Verified 10/27/23 07:33 Review of Systems Review of Systems Narrative: as per HPI Patient History Surgical History (Updated 10/16/17 @ 06:24 by Elisa Rodriguez MD) Status post ovarian cystectomy (11/10/16) Status post hysterectomy (11/10/16) Status post dilation and curettage (06/12/14) History of third molar tooth extraction Status post tonsillectomy and adenoidectomy Status post laparoscopic cholecystectomy History of thyroidectomy Social History Smoking Status: Never smoker Smoking Status: Never smoker alcohol intake frequency: a few times a week Substance Use Type: does not use Exam Narrative Exam Narrative: GENERAL: Well-developed patient, in mild distress. HEAD: Atraumatic. Normocephalic. EYES: Pupils equal round and reactive. Extraocular motions intact. No scleral icterus. No injection or drainage. ENT: Nose without bleeding, purulent drainage. Throat without erythema, tonsillar hypertrophy or exudate. Airway patent. NECK: Trachea midline. Non tender CARDIOVASCULAR: Regular rate and rhythm without murmurs, gallops, or rubs. RESPIRATORY: Clear to auscultation. Breath sounds equal bilaterally. No wheezes, rales, or rhonchi. GASTROINTESTINAL: Abdomen soft, non-tender, nondistended. EXTREMITIES: Right knee without gross abnormality, no gross effusion, no tenderness mediolateral joint line, declines to try to move any due to posterior pain, has tenderness right lateral posterior musculature, no bruising or swelling, Mychal's seemed to have good endpoint. Good distal dorsalis pedis pulse. BACK: Nontender without deformity or crepitance. No flank tenderness. NEURO: AOx3. SKIN: No rash or erythema of visible areas Initial Vital Signs Initial Vital Signs: Vital Signs Temperature 98.8 F 11/23/23 07:54 Pulse Rate 69 11/23/23 07:54 Respiratory Rate 18 11/23/23 07:54 Blood Pressure 129/57 L 11/23/23 07:54 Pulse Oximetry 97 11/23/23 07:54 Oxygen Delivery Method Room Air 11/23/23 07:54 Course Orders Ordered: Discontinued Medications Ketorolac Tromethamine (Ketorolac 30 Mg/Ml Vial) 30 mg IM NOW ONE Stop: 11/23/23 09:43 Last Admin: 11/23/23 09:47 Dose: 30 mg Documented By: RB Vital Signs Vital signs: Vital Signs - 8 hr 11/23/23 07:54 Temperature 98.8 F Pulse Rate 69 Respiratory Rate 18 Blood Pressure 129/57 L Pulse Oximetry 97 Oxygen Delivery Method Room Air MDM - Extremity (Nontraumatic) MDM Narrative Medical decision making narrative: Right knee x-ray two-view. Impressions: ?No acute bony abnormality or significant effusion. Mild degenerative change. On exam suspected she might have gastroc tear,, posterior tenderness, no anterior joint effusion, x-ray negative. She was asking about emergent MRI imaging since she was waiting for outpatient, however this does not seem an emergent indication, could be declined by insurance. We will protect knee in immobilizer for now, crutches nonweightbearing. Follow up with regular provider advised. Pain medications as needed. She received IM Toradol in the waiting room, which she says has helped. Discharge Plan Departure Patient Disposition: Home Clinical Impression: Strain of right gastrocnemius muscle, Chronic pain of right knee Activity Restrictions/Additional Instructions: Ongoing right knee pain followed by Dr. Madrid orthopedic surgery through [facility], awaiting outpatient MRI of the right knee, today walking upstairs felt popping sensation to the posterior right knee, different location ongoing symptoms. No swelling of the knee joint. On exam there seemed to be tenderness at the origin of the gastroc anemias muscle, lateral more than right side, it is possible that this was drained by the up lifting motion. Anatomically this seems different in location than pain that would usually be attributed to your reported patellofemoral knee pain, or meniscal knee pain. X-ray screening showed no bony fractures at this time. Continue to follow up with your outpatient MRI right knee. Right knee placed in knee immobilizer. Crutches and nonweightbearing. Follow up with your regular doctor on Sunday early next week to reassess symptoms and progress of your right knee MRI referral. Also consider further follow up with Dr. Madrid. Return to this/nearest emergency department for any change worsening symptoms or any concerns prior Prescriptions: New naproxen 500 mg tablet 500 mg PO BID 7 Days Qty: 14 0RF No Action amoxicillin 500 mg capsule 500 mg PO BID Qty: 20 0RF cholecalciferol (vitamin D3) [Vitamin D3] 1,000 UNIT tablet 5,000 u PO QDAY Qty: 0 estradiol [Jenny] 0.05 mg/24 hr patch semiweekly 1 patch topical 2XW Qty: 24 3RF atorvastatin 10 mg tablet 10 mg PO DAILY Referrals: Marcos Hernandez MD [Primary Care Provider] - Stand Alone Forms: Patient Portal/API
[2023-11-23 12:11] VITALS: BP 132/63; PULSE 71; RESP 16; TEMP 36.5; O2SAT 100
== END 2023-11-23 12:12 | disposition home or self-care (01) ==
PROVIDERS: Emergency Provider Emergency Medicine; PCP Family Medicine
DX: S86.111A Strain of other muscle(s) and tendon(s) of posterior muscle group at lower leg level, right leg, initial encounter (principal); M25.561 Pain in right knee; G89.29 Other chronic pain; X58.XXXA Exposure to other specified factors, initial encounter
CPT/HCPCS: 73560; 96372; 99283; 99284; J1885

== ENCOUNTER → 2024-08-25 07:44 | Outpatient (CLI) | payer OTHER, SELFPAY ==
--- NOTE | 2024-08-25 07:45 | DI.MG.S_ITS ---
MM screening mammo BI: 08/25/2024. BI-RADS: 1 CLINICAL: 54-year old female for bilateral screening mammogram. Tyrer-Cuzick lifetime risk of 12.1%. No personal or first-degree family history of breast cancer. Current reported family history of breast cancer: maternal aunt. PRIOR EXAMS 08/17/2023, 08/15/2022, 07/04/2021, 05/22/2020, 05/14/2019, 12/20/2017, 11/03/2016, 09/15/2015. MAMMOGRAPHY TECHNIQUE: 2D and 3D (tomosynthesis) digital mammographic views obtained, with additional images as needed for full coverage. Current study was also evaluated with a Computer Aided Detection (CAD) system. DENSITY C. The breasts are heterogeneously dense, which may obscure small masses. MAMMOGRAPHY FINDINGS Bilateral: No suspicious mass, asymmetry, microcalcification, or other abnormality seen. IMPRESSION: * No evidence of malignancy. RECOMMENDATIONS Bilateral * Annual screening mammography. OVERALL ASSESSMENT CATEGORY BI-RADS-1: Negative. The [employer] recommends annual screening mammography beginning at age 40 for women with average risk of breast cancer. ELECTRONICALLY SIGNED: Annalee Marroquin M.D. on 08/27/2024 at 11:06:19 PM PT Interpreting Station ID: [id number]
== END ==
PROVIDERS: PCP Family Medicine; Referring Provider Family Medicine; Visit Provider Family Medicine
DX: Z12.31 Encounter for screening mammogram for malignant neoplasm of breast (principal); Z80.3 Family history of malignant neoplasm of breast; R92.333 Mammographic heterogeneous density, bilateral breasts
CPT/HCPCS: 77063; 77067